=== PATIENT | female | born 1975 | race Asian ===

== ENCOUNTER 2020-09-24 10:09 | Emergency (ER) | payer BC ==
[~2020-09-24] VITALS: Ht 170.2 cm; Wt 109.3 kg
[2020-09-24 10:16] VITALS: BP 148/94; Ht 170.2 cm; Wt 109.3 kg
[2020-09-24 10:50] LABS: BASOPHIL % 0.7 % (0.2-1.3); PLATELET COUNT 291 x10^3mcL (179-408); RED CELL DISTRIBUTION WIDTH 14.3 % (12.3-17.7)
[2020-09-24 10:57] LABS: CHLORIDE SERUM 103 mmol/L (98-107); CREATININE SERUM 0.8 mg/dL (0.6-1.0); GFR1 > 60 mL/min; GLUCOSE SERUM 113 mg/dL (74-106); SODIUM SERUM 138 mmol/L (136-145)
[2020-09-24 11:01] LABS: ALBUMIN 4.2 g/dL (3.4-5.0); ALKALINE PHOSPHATASE 89 U/L (46-116); ALT/SGPT 52 U/L (14-59); AST/SGOT 27 U/L (15-37); BILIRUBIN TOTAL 0.68 mg/dL (0.20-1.00); TOTAL PROTEIN, SERUM 8.1 g/dL (6.4-8.2)
== END 2020-09-24 11:51 | disposition home or self-care (01) ==
LOC: ED 10:09
DX: R07.89 Other chest pain (principal); I10 Essential (primary) hypertension